=== PATIENT | female | born 1950 ===

== ENCOUNTER 2017-12-29 06:05 | Day surgery (SDC) | payer MEDICARE, MEDICAID ==
[2017-12-26 16:01] VITALS: BMI 28.6
--- NOTE | 2017-12-27 03:41 | HP ---
REASON FOR ADMISSION: Left heart catheterization, possible angioplasty, abnormal stress test. BRIEF CLINICAL HISTORY: This is a 67-year-old female with a past medical history significant for hypertension, sinus bradycardia, leg swelling, complaining of dyspnea on exertion and chest pain. The patient underwent a stress test that was abnormal, so patient was scheduled for elective cardiac cath and possible angioplasty. PAST MEDICAL HISTORY: Significant for hypertension, bradycardia and leg swelling. SOCIAL HISTORY: Denies any history of alcohol abuse. CURRENT MEDICATIONS: Patient is taking vitamin D2 50,000 units every week; losartan hydrochlorothiazide combination, losartan/hydrochlorothiazide 50/12.5 daily; calcium 500 mg p.o. daily. A recent cardiac workup as follows, patient had a Lexiscan done dated 12/23/2017 that showed probably abnormal stress myocardia perfusion study, partially reversible anterior apical defect suspicious for ischemia, ejection fraction 64%, dated 12/23/2017. Patient had an echocardiography done, 12/19/2017, that showed normal LV size, normal RV, normal left atrium, normal right atrium, trace aortic regurgitation, mild mitral regurgitation, mild regurgitation, ejection fraction 60% to 65%, no PE, no vegetation, no thrombus noted. REVIEW OF SYSTEMS: As per HPI. PHYSICAL EXAMINATION: VITAL SIGNS: Height of the patient is 5 feet 5 inches, weight of the patient was 172 pounds, body mass index 28.6 kg/m2. Blood pressure 126/70, heart rate 58, temperature afebrile. HEENT: PERRLA. Extraocular muscles intact. NECK: Supple. No carotid bruit or thyromegaly. CHEST: Clear to auscultation. HEART: S1 and S2, regular. ABDOMEN: Soft. EXTREMITIES: Clubbing and cyanosis negative. LABORATORY DATA: Blood workup pending. IMPRESSION: Abnormal stress test, ejection fraction preserved, obesity, hypertension, mild mitral regurgitation, mild tricuspid regurgitation, trace aortic regurgitation, trace pulmonic insufficiency, ejection fraction 60% to 65%, abnormal stress test as mentioned. Risks, benefits and alternatives were discussed with the patient. The patient agreed. We will proceed for cardiac catheterization. Further recommendation after the cardiac catheterization. We will load with aspirin and Plavix. We will follow with you. Thank you Dr. Bennett/Dr. Colon for providing us the opportunity in taking care of the patient, Danette Vazquez. Magnolia Sweet MD Psychiatric # [id number]
[2017-12-29] MEDS ORDERED: Phenylephrine 10 mg/ml Inj ONE (06:55)
[2017-12-29] MEDS ORDERED: Lidocaine 2% Inj (20ml) ONE (06:55)
[2017-12-29] MEDS ORDERED: Nitroglycerin 50mg in D5W 50 MG/250 ML BOTTLE IV ONE ×2 (06:56→07:03)
[2017-12-29] MEDS ORDERED: Verapamil 2 ML ONE (06:56)
[2017-12-29] MEDS ORDERED: HEPARIN SODIUM/NS 2,000 ML IV ONE (06:56)
[2017-12-29 06:57] LABS: BASO # 0.08 K/mm3 (0.0-2.0); BASO % 1.1 % (0.0-3.0); EOS # 0.2 (0.0-0.7); EOS % 2.5 % (1.5-5.0); GRAN # 4.05 (1.4-6.5); GRAN % 53.2 % (50.0-68.0); LYMPH # 2.7 (1.2-3.4); LYMPH % 35.3 % (22.0-35.0); MEAN CORPUSCULAR HEMOGLOBIN 28.4 pg (25.0-35.0); MEAN CORPUSCULAR HGB CONC 31.3 g/dl (31.0-37.0); MEAN PLATELET VOLUME 11.2 fl (7.0-11.0); MONO # 0.6 (0.1-0.6); MONO % 7.9 % (1.0-6.0); RBC 4.57 10^6/uL (3.5-6.1); WHITE BLOOD COUNT 7.6 10^3/ul (4.5-11.0)
[2017-12-29 07:04] LABS: BLOOD UREA NITROGEN 16 mg/dL (7-21); CALCIUM 9.8 mg/dL (8.4-10.5); GFR AFRICAN-AMERICAN > 60; GFR NON-AFRICAN AMERICAN > 60; HDL CHOLESTEROL 51 mg/dL (29-60)
[2017-12-29 07:15] LABS: LDL CHOLESTEROL 163 mg/dL (0-129)
[2017-12-29 07:16] LABS: PROTHROMBIN TIME 11.5 SECONDS (9.4-12.5)
[2017-12-29] MEDS ORDERED: Iohexol 350 MG/100 ML VIAL ONE (07:22)
[2017-12-29] MEDS ORDERED: Iohexol 350mgl/ml 50 ML ONE (07:22)
[2017-12-29] MEDS ORDERED: Midazolam 2 MG/2 ML VIAL ONE (07:42)
[2017-12-29] MEDS ORDERED: Bacitracin 500 Units/gm Oint Foilpak UD TOP ONE (08:27)
[2017-12-29] MEDS ORDERED: Sodium Chloride 0.9% 1,000 ML IV SCH (08:30)
--- NOTE | 2017-12-29 11:07 | CARD ---
APPROVED REPORT EKG Measurement Heart [id number] MI [id number] <Conclusion> Sinus bradycardia Poor R Progression V1-V4.
[2017-12-29] MEDS ORDERED: Bacitracin 500 Units/gm Oint Foilpak UD ONE (11:32)
--- NOTE | 2017-12-29 14:22 | CARD ---
APPROVED REPORT Procedure(s) performed: Left Heart Catheterization HISTORY The patient is a 67 year-old female with a history of : most recent EF: 64%. (EF Method: RADIONUCLIDE), hypertension , Abnormal stress test Apical anterior reversible ischemia.. INDICATION The indication(s) include : positive stress test. CASE TECHNIQUE The patient was brought electively to the Cardiac Catheterization Laboratory in a fasting state and was prepped and draped in a sterile manner. The left wrist was infiltrated with 2% Lidocaine subcutaneous anesthesia. A 6FR [employer] sheath was inserted into the left radial artery without difficulty. Coronary angiography was performed using coronary diagnostic catheters. The left coronary system was accessed and visualized with a Diagnostic ,5 Fr JL 4 catheter. The right coronary system was accessed and visualized with a Diagnostic ,5 Fr JR 4 catheter. The left ventricle was accessed and visualized with a 5 Fr Pigtail 145 (Angled) catheter. Left ventricular/Aortic Valve gradient assessed on pullback. Left ventriculogram was performed in OLVERA projection. The patient tolerated the procedure well and there were no complications associated with the procedure. Vessel Analysis The patient's coronary anatomy is right dominant. The left main coronary artery is a medium size vessel with intimal irregularities and without significant stenosis. The left main trifurcates to the left anterior descending, circumflex, and ramus. The left anterior descending artery is a medium size vessel without significant stenosis. The first diagonal branch is a medium size vessel with intimal irregularities and without significant stenosis. The second diagonal branch is a small size vessel with intimal irregularities and without significant stenosis. The circumflex artery is a medium size vessel with intimal irregularities and without significant stenosis. The first obtuse marginal branch is a medium size vessel without significant stenosis. The ramus intermedius artery is a medium size vessel with intimal irregularities and without significant stenosis. The right coronary artery is a medium size vessel without significant stenosis. The right posterior descending artery is a large size vessel without significant stenosis. The right posterolateral branch is a medium size vessel without significant stenosis. Left Ventricle The left ventricle is normal in size with normal contractility. There was no cardiomyopathy. The left ventricular ejection fraction is estimated to be 60-65%. The left ventricular end diastolic pressure is 15 mmHg. There was no gradient across the aortic valve upon pullback. Conclusion Normal Coronaries Preserved LV FX. EF-60-65%, edp-15 MMOF HG. Recommendations Aggressive Medical TherapyCardiac Risk Reduction Program CC: Drs. Bennett / Darlene.
== END 2017-12-29 12:30 | disposition home or self-care (01) ==
LOC: CATH 06:05
PROVIDERS: ATTEND Internal Medicine Cardiovascular Disease
DX: R07.9 Chest pain, unspecified (principal); R06.09 Other forms of dyspnea; I10 Essential (primary) hypertension; R00.1 Bradycardia, unspecified; R94.39 Abnormal result of other cardiovascular function study; E66.9 Obesity, unspecified
CPT/HCPCS: 36415; 80048; 80061; 85025; 85610; 85730; 86850; 86900; 93005; 93458; 99152; C1769; C1887 ×2; J1644 ×2; J2250; J3010; J7040 ×2; Q9967